=== PATIENT | male | born 1980 | race Caucasian/White ===

== ENCOUNTER 2020-11-15 20:02 | Emergency (ER) | payer OTHER, MEDICAID ==
[~2020-11-15] VITALS: Ht 165.1 cm; Wt 56.7 kg
[2020-11-15] MEDS ORDERED: PREDNISONE20 M1 PO (20:47)
[2020-11-15] MEDS ORDERED: DOXYCYCLINE100 M3 PO (20:47)
== END 2020-11-15 21:00 | disposition home or self-care (01) ==
LOC: ED 20:02
DX: L23.7 Allergic contact dermatitis due to plants, except food (principal); L08.89 Other specified local infections of the skin and subcutaneous tissue

== ENCOUNTER 2020-12-08 06:47 | Emergency (ER) | payer OTHER, MEDICAID ==
[~2020-12-08] VITALS: Ht 170.1 cm; Wt 61.2 kg
[~2020-12-08 06:47] MED LIST: DOXYCYCLINE100 M3 PO; PREDNISONE20 M1 PO
[2020-12-08 07:25] LABS: BASO # 0.1 10*3/uL (0.0-0.1); BASO % 1.3 % (0.0-1.0); EOS # 0.3 10*3/uL (0.0-0.4); EOS % 3.4 % (1.0-4.0); LYMPH # 1.6 10*3/uL (1.3-4.4); LYMPH % 20.2 % (27.0-41.0); MEAN CELL VOLUME 97.7 fl (80.0-94.0); MEAN CORPUSCULAR HGB 34.1 pg (27.0-31.0); MEAN CORPUSCULAR HGB CONC 34.9 g/dl (33.0-37.0); MEAN PLATELET VOLUME 8.9 fl (9.6-12.3); MONO # 0.6 10*3/uL (0.1-1.0); MONO % 7.5 % (3.0-9.0); NEUT # 5.3 10*3/uL (2.3-7.9); NEUT % 67.3 % (47.0-73.0); PLATELET COUNT AUTOMATED 304 10*3/uL (130-400); RED CELL DISTRI WIDTH 12.6 % (0-14.5); WHITE BLOOD COUNT 7.9 10*3/uL (4.8-10.8)
[2020-12-08 07:38] LABS: ALBUMIN 3.5 gm/dl (3.1-4.5); ALKALINE PHOSPHATASE 81 U/L (45-117); BUN 8 mg/dl (7-24); CHLORIDE 105 mmol/L (98-107); CREATININE 0.62 mg/dL (0.70-1.30); LIPASE 1452 U/L (73-393); SGOT/AST 39 IU/L (3-35); SGPT/ALT 41 U/L (12-78); SODIUM 138 mmol/L (136-145); TOTAL PROTEIN 7.5 gm/dL (6.4-8.2)
[2020-12-08] MEDS ORDERED: ZOFRAN4 MG PO (10:17)
== END 2020-12-08 10:28 | disposition home or self-care (01) ==
LOC: ED 06:47
PROVIDERS: Family Medicine
DX: E86.0 Dehydration (principal); E87.6 Hypokalemia; E83.42 Hypomagnesemia; Z79.899 Other long term (current) drug therapy

== ENCOUNTER 2020-12-26 10:53 | Emergency (ER) | payer OTHER, MEDICAID ==
[~2020-12-26] VITALS: Ht 170.1 cm; Wt 61.2 kg
[~2020-12-26 10:53] MED LIST changes: +ZOFRAN4 MG PO
[2020-12-26 11:54] LABS: BASO # 0.1 10*3/uL (0.0-0.1); BASO % 2.1 % (0.0-1.0); EOS # 0.8 10*3/uL (0.0-0.4); EOS % 12.9 % (1.0-4.0); HEMATOCRIT 42.5 % (42.0-52.0); LYMPH # 2.2 10*3/uL (1.3-4.4); LYMPH % 36.1 % (27.0-41.0); MEAN CELL VOLUME 100.2 fl (80.0-94.0); MEAN CORPUSCULAR HGB 34.2 pg (27.0-31.0); MEAN CORPUSCULAR HGB CONC 34.1 g/dl (33.0-37.0); MEAN PLATELET VOLUME 9.4 fl (9.6-12.3); MONO # 0.5 10*3/uL (0.1-1.0); MONO % 8.4 % (3.0-9.0); NEUT # 2.5 10*3/uL (2.3-7.9); NEUT % 40.3 % (47.0-73.0); PLATELET COUNT AUTOMATED 253 10*3/uL (130-400); RED BLOOD COUNT 4.24 10*6/uL (4.50-5.90); RED CELL DISTRI WIDTH 12.6 % (0-14.5); WHITE BLOOD COUNT 6.2 10*3/uL (4.8-10.8)
[2020-12-26 12:09] LABS: ALBUMIN 3.7 gm/dl (3.1-4.5); ALKALINE PHOSPHATASE 87 U/L (45-117); BUN 4 mg/dl (7-24); CHLORIDE 109 mmol/L (98-107); CREATININE 0.59 mg/dL (0.70-1.30); POTASSIUM 4.8 mmol/L (3.5-5.1); SGOT/AST 81 IU/L (3-35); SGPT/ALT 56 U/L (12-78); SODIUM 136 mmol/L (136-145); TOTAL PROTEIN 7.5 gm/dL (6.4-8.2)
[2020-12-26 12:27] LABS: BILIRUBIN Negative (Negative); BLOOD Negative (Negative); CLARITY Clear (Clear); COLOR Yellow (Yellow); GLUCOSE Negative (Negative); KETONE Negative (Negative); LEUKO ESTERASE Negative (Negative); NITRITE Negative (Negative); PH 5.5 (4.5-8.0); SPECIFIC GRAVITY <= 1.005 (1.001-1.030)
[2020-12-26 12:49] LABS: RBC 0-2 rbc/hpf (0-2); WBC 0-2 wbc/hpf (0-5)
[2020-12-26] MEDS ORDERED: ZITHROMAX250 MG PO (14:10)
== END 2020-12-26 14:21 | disposition home or self-care (01) ==
LOC: ED 10:53
PROVIDERS: Physician Assistant
DX: J18.9 Pneumonia, unspecified organism (principal); Z79.899 Other long term (current) drug therapy; Z79.2 Long term (current) use of antibiotics